=== PATIENT | male | born 1965 | race Caucasian/White ===

== ENCOUNTER 2017-12-26 09:57 | Emergency (ER) ==
[2017-12-26 10:00] VITALS: BP 149/89; TEMP 98.1; BMI 32.1
[2017-12-26] MEDS ORDERED: TORADOL IM STA (10:50)
--- NOTE | 2017-12-26 10:51 | ED.PDOC ---
General ED Provider: Dr. THIERNO MURPHY Chief Complaint: Elbow Pain/Injury Stated Complaint: CC: RT ELBOW PAIN. HPI: States was lifting while moving 2-3 days ago and strained elbow. Has swelling to olecranon region. Later in the visit female aquaintance stated he fell on rt elbow during the winter. No warmth however localize area of slight erythrema approx 1 cm diameter post olecranon Time Seen by Physician: 10:30 Mode of Arrival: Walk-In Information Source: Patient Exam Limitations: No limitations [facility] and Triage Documentation Reviewed and Agree: Yes Reviewed sepsis parameters & appropriate labs ordered?: Yes System Inflammatory Response Syndrome: Not Applicable Sepsis Protocol: For patient's 13 years and over: Temp is 96.8 and below OR 101 and greater Pulse >90 BPM Resp >20/minute Acutely Altered Mental Status Are patient's symptoms suggestive of a new infection, such as: -Pneumonia -Skin, Soft Tissue -Endocarditis -UTI -Bone, Joint Infection -Implantable Device -Acute Abdominal Infection -Wound Infection -Meningitis -Blood Stream Catheter Infection -Unknown Review of Systems - Review Of Systems Constitutional: Reports: No symptoms Eyes: Reports: No symptoms Ears, Nose, Mouth, Throat: Reports: No symptoms Respiratory: Reports: No symptoms Cardiac: Reports: No symptoms GI: Reports: No symptoms : Reports: No symptoms Musculoskeletal: Reports: Joint pain, Other (elbow swelling) Skin: Reports: No symptoms Neurological: Reports: No symptoms Endocrine: Reports: No symptoms Hematologic/Lymphatic: Reports: No symptoms All Other Systems: Reviewed and Negative Past Medical History - Past Medical History Previously Healthy: Yes Endocrine: Reports: None Cardiovascular: Reports: None Respiratory: Reports: None Hematological: Reports: None Gastrointestinal: Reports: None Genitourinary: Reports: None Neuro/Psych: Reports: None Musculoskeletal: Reports: None Cancer: Reports: None - Surgical History General Surgical History: Reports: None - Family History Family History: Reports: None - Social History Smoking Status: Current every day smoker Hx Substance Use: No Alcohol Screening: None Physical Exam - Physical Exam Appearance: Well-appearing, No pain distress, Well-nourished Eyes: DEMETRIO, EOMI, Conjunctiva clear ENT: Ears normal, Nose normal, Oropharynx normal Respiratory: Airway patent, Breath sounds clear, Breath sounds equal, Respirations nonlabored Cardiovascular: RRR, Pulses normal, No rub, No murmur GI/: Soft, Nontender, No masses, Bowel sounds normal, No Organomegaly Musculoskeletal: Normal strength, ROM intact, No edema, No calf tenderness, Edema (Rt olecranon -posterior elbow region) Skin: Warm, Dry, Normal color Neurological: Sensation intact, Motor intact, Reflexes intact, Cranial nerves intact, Alert, Oriented Psychiatric: Affect appropriate, Mood appropriate Procedures - Additional Procedures Additional Procedures: Joint Aspiration (Rt Olecranon Bursa effusion ), Other ( Rt Olecranon effusion ) Re-Evaluation - Re-Evaluation Time of Re-Evaluation: 13:00 Status: Improved Vital Signs Stable: Yes Appearance: NAD Lungs: Clear Skin: Warm and Dry Neuro: Alert and Oriented X3 CV: RRR Critical Care Note - Critical Care Note Total Time (mins): 0 Course - Course Hematology/Chemistry: 12/26/17 11:00 12/26/17 11:00 Orders, Labs, Meds: Lab Review 12/26/17 12/26/17 12/26/17 11:00 11:00 11:00 WBC 12.47 H RBC 4.70 Hgb 14.4 Hct 44.6 MCV 94.9 H MCH 30.6 MCHC 32.3 RDW Coeff of Amparo 12.9 Plt Count 158 Immature Gran % (Auto) 0.4 Neut % (Auto) 85.5 Lymph % (Auto) 9.8 L Laporte % (Auto) 3.9 Eos % (Auto) 0.2 Baso % (Auto) 0.2 Immature Gran # (Auto) 0.1 Neut # (Auto) 10.7 H Lymph # (Auto) 1.2 [place] # (Auto) 0.5 Eos # (Auto) 0.0 Baso # (Auto) 0.0 ESR 5 Sodium 144 Potassium 4.6 Chloride 108 H Carbon Dioxide 27 Anion Gap 13.6 BUN 10 Creatinine 0.84 Estimated GFR (MDRD) 97.00 BUN/Creatinine Ratio 11.90 Glucose 115 H Calcium 9.9 Total Bilirubin 0.3 AST 13 L ALT 29 Alkaline Phosphatase 66 Total Protein 7.2 Albumin 3.9 Globulin 3.3 Albumin/Globulin Ratio 1.18 Orders Category Date Time Status CBC W/ AUTO DIFF Stat LAB 12/26/17 11:00 Completed CMP [COMPREHENSIVE METABOLIC PANEL] Stat LAB 12/26/17 11:00 Completed ESR Stat LAB 12/26/17 11:00 Completed Ketorolac Tromethamine [Toradol] MEDS 12/26/17 10:50 Discontinued 30 mg IM ONCE STA CT ELBOW RIGHT WO CONTRAST Stat RADS 12/26/17 10:50 Completed Medications Discontinued Medications Generic Name Dose Route Start Last Admin Trade Name Reanna PRN Reason Stop Dose Admin Ketorolac Tromethamine 30 mg 12/26/17 10:50 12/26/17 11:09 Toradol IM 12/26/17 10:51 30 mg ONCE STA Administration Vital Signs: Temp Pulse Resp BP Pulse Ox 12/26/17 09:58 98.1 F 73 16 149/89 H 95 Departure - Departure Time of Disposition: 13:10 Disposition: HOME SELF-CARE Discharge Problem: Olecranon bursitis of right elbow, Effusion of right olecranon bursa Instructions: Elbow Bursitis (ED) Condition: Good Pt referred to PMD for follow-up: Yes (PCP in next 7 days or back to ER earlier if needed.) IPMP verified?: No Additional Instructions: PCP in next 7 days or back to ER earlier if needed. Ice pack to area daily Ibuprofen for pain Cephlexin 500 mg twice daily Allergies/Adverse Reactions: Allergies No Known Allergies Allergy (Unverified 12/26/17 10:00) Home Medications: Ambulatory Orders Cephalexin [Keflex] 500 mg PO BID #14 capsule 12/26/17 Ibuprofen 600 mg PO QID #20 tablet 12/26/17 Disposition Discussed With: Patient, Family
--- NOTE | 2017-12-26 11:37 | CT ---
EXAM: CT scan right elbow without contrast HISTORY: Pain and swelling COMPARISON: None. FINDINGS: Contiguous axial images obtained through the elbow without contrast utilizing 2-mm collima tion. Sagittal and coronal reconstructions were imaged and reviewed Complex fluid collection is see n in the olecranon bursa which contains septations with surrounding edema... Findings are compatible with olecranon bursitis. Superimposed infection is not excluded. Suggest aspiration for further jong luation.. Mild degenerative joint disease is noted about the HU and H R joints with several tiny bon y bodies posteriorly within the HU joint. There is no acute fracture or bony erosion.. IMPRESSION: Findings compatible with olecranon bursitis.. Superimposed infection is not excluded. Suggest aspira tion for further evaluation. Degenerative joint disease with loose bodies as described. No acute fracture or bony erosion.
== END 2017-12-26 13:30 | disposition home or self-care (01) ==
LOC: ED 09:57
DX: M70.21 Olecranon bursitis, right elbow (principal); X50.9XXA Other and unspecified overexertion or strenuous movements or postures, initial encounter; F17.210 Nicotine dependence, cigarettes, uncomplicated
CPT/HCPCS: 36415; 80053; 85025; 85651; 87070; 96372; 99283